=== PATIENT | female | born 1960 | race Caucasian/White ===

== ENCOUNTER 2016-04-23 12:23 | Outpatient (CLI) | payer OTHER | END 2016-04-23 12:24 | disposition home or self-care (01) | DX: Z12.31 Encounter for screening mammogram for malignant neoplasm of breast (principal) ==

== ENCOUNTER 2016-04-30 08:38 | Outpatient (CLI) | payer OTHER | END 2016-04-30 08:39 | disposition home or self-care (01) | DX: N64.4 Mastodynia (principal); N63 Unspecified lump in breast ==

== ENCOUNTER 2017-10-17 09:10 | Outpatient (CLI) | payer BC | END 2017-10-17 09:11 | disposition home or self-care (01) | LOC: SC 09:10 | PROVIDERS: ATTEND Internal Medicine Pulmonary Disease | DX: G47.30 Sleep apnea, unspecified (principal); G47.10 Hypersomnia, unspecified; R06.83 Snoring; E66.9 Obesity, unspecified; Z68.35 Body mass index [BMI] 35.0-35.9, adult | CPT/HCPCS: 99203; 99212 ==

== ENCOUNTER 2017-11-09 10:58 | Outpatient (CLI) | payer BC | END 2017-11-09 10:59 | disposition home or self-care (01) | LOC: SC 10:58 | PROVIDERS: ATTEND Nurse Practitioner Family | DX: G47.33 Obstructive sleep apnea (adult) (pediatric) (principal) | CPT/HCPCS: 99212; 99215 ==

== ENCOUNTER 2018-01-23 12:48 | Outpatient (CLI) | payer BC | END 2018-01-23 12:49 | disposition home or self-care (01) | LOC: SC 12:48 | PROVIDERS: ATTEND Nurse Practitioner Family | DX: G47.33 Obstructive sleep apnea (adult) (pediatric) (principal) | CPT/HCPCS: 99212; 99214 ==

== ENCOUNTER 2018-02-27 09:10 | Outpatient (CLI) | payer BC | END 2018-02-27 09:11 | disposition home or self-care (01) | LOC: SC 09:10 | PROVIDERS: ATTEND Nurse Practitioner Family | DX: G47.33 Obstructive sleep apnea (adult) (pediatric) (principal) | CPT/HCPCS: 99212; 99213 ==

== ENCOUNTER 2018-03-22 10:04 | Outpatient (CLI) | payer BC ==
--- NOTE | 2018-03-22 11:11 | Mammography Report ---
Reason: SCREENING MAMMO Procedure Date: 03/22/2018 Accession Number: [id number] / [id number] Procedure: MARIEL - Screening Mammo w/Jeancarlos CPT Code: FULL RESULT: EXAM: Screening Mammo w/Jeancarlos DATE: 03/22/2018 10:36 AM CLINICAL HISTORY: Screening mammogram TECHNIQUE: Bilateral CC and MLO views were obtained. COMPARISON: 04/30/2016, 01/24/2015 and 12/15/2012 FINDINGS: There are scattered fibroglandular densities. No significant interval change. No suspicious masses, clustered microcalcifications, skin thickening, or regions of architectural distortion are identified. IMPRESSION: Benign findings RECOMMENDATION: Routine annual screening unless otherwise clinically indicated. BIRADS CATEGORY 2: Benign findings STANDARD QUALIFYING STATEMENTS: 1. This examination was not reviewed with the aid of Computer-Aided Detection (CAD). 2. A negative or benign imaging report should not preclude biopsy if clinically suspicious findings are present. 3. Dense breasts may obscure an underlying neoplasm. 4. This examination was reviewed with the aid of 3D breast imaging (tomosynthesis).
== END 2018-03-22 10:05 | disposition home or self-care (01) ==
LOC: DI 10:04
DX: Z12.31 Encounter for screening mammogram for malignant neoplasm of breast (principal)
CPT/HCPCS: 77063; 77067

== ENCOUNTER 2018-10-25 14:40 | Outpatient (CLI) | payer BC ==
[2018-10-25 15:49] VITALS: BP 142/80
--- NOTE | 2018-10-25 15:49 | SLEEP CARE CONSULTATION ---
Information from patient questionnaire entered by Tania Sam. I have reviewed and concur with the information entered by Tania Sam. This document represents the service I personally performed and the decisions made by me, Therese Soares, RN, MSN, COM[employer] WELDER APPRENTICE. History of Present Illness Previous diagnosis: Mild (Culmulative AHI of 2 studies show AHI of 15.3 with3% desat and 12.1 with 4% desat. ), Moderate, Obstructive Sleep Apnea-Hypopnea Syndrome AHI: 15.3 Reason for CPAP/BiPAP follow up: other (9 month) Equipment type: CPAP Equipment obtained from: [employer] Mask style: Nasal Mask brand: Respironics Backup mask available: Yes Last cushion change: 2 weeks ago Prior sleep studies: Yes CPAP Compliance Data - Data Reviewed with Patient Average duration of nightly device use: 6.9 Compliance rate %: 90 (180 days) Current pressure setting (cmH2O): 6-8 Humidity settin Heated hose settin Average residual AHI: 2.8 Average large leak: 1 min 7 secs Subjective Patient concerns: reports: mask discomfort (from over tightening mask to prevent dislodging), nasal congestion (mild in morning intermittently ). denies: aerophagia, air blowing in eyes, mask leak noise, condensation in mask/hose, dry mouth, nose, throat, epistaxis Observed to snore while using device: No Current pressure setting perceived as: comfortable On therapy, patient: reports: sleeping better, awakening more refreshed, being more awake and alert during the day, more rested overall. denies: drowsiness while driving Initial [place] Sleepiness Scale score: 5 Current [place] Sleepiness Scale score: 2 Allergies and Home Medications Known drug allergies: Yes (ibuprofen ) Home medication list reviewed: Yes Allergy and home medication list: Metformin 500mg tid Review of Systems Review of systems same as previous: No (Stopped blood pressure as no longer needed since CPAP) Physical Exam Blood Pressure: 142/80 Cuff size: long Heart Rate: 77 O2 Saturation: 98 Height: 5 ft 5.5 in Weight (kg): 217 lb 9.6 oz Body Mass Index: 35.6 BMI Classification: Class 2 Impression and Plan 1. Obstructive Sleep Apnea-Hypopnea Syndrome, mild to moderate, with good treatment compliance and good apnea control. On CPAP therapy, the patient has better sleep quality and is more rested overall. Since her headgear has been dislodging and if tightens , it is uncomfortable, I will order the new headgear attachment. She is to inform me if she has difficulty getting this new attachment so I can contact mask rep. She is aware of how often to get supplies. When I discussed her BMI and obesity health risks, patient stated she has struggled with weight for lifetime. Her lowest weight of 150 pounds was only achieved if maintained a very strict 800cal diet. She is taking Metformin to assist with weight loss and working with PCP. Current weight is stable. She was informed if she [place] or loses significant weight, her apnea risk will increase or decrease and pressure requirements will change. Thus she was informed of symptoms to report for pressure adjustment. Patient's apnea severity and rationale for treatment to reduce apnea, improve sleep quality and reduce cardiovascular and cerebrovascular events was reviewed. I also reviewed the benefit of consistent device use of CPAP for hypertension. Patient states she no longer requires blood pressure medication to control blood pressure. * Continue CPAP pressure at 6-8 cmH2O * Headgear attachment. * Notify me if snoring with mask or feeling that the pressure is too much or too little * Attempt to lose weight * Return for follow up in 1 year, or sooner if concerns arise I spent 100% of this 30 minute visit face to face with the patient with greater than 50% of this was spent time counseling the patient and coordination of care.
== END 2018-10-25 14:41 | disposition home or self-care (01) ==
LOC: SC 14:40
PROVIDERS: ATTEND Nurse Practitioner Family
DX: G47.33 Obstructive sleep apnea (adult) (pediatric) (principal); E66.9 Obesity, unspecified; Z68.35 Body mass index [BMI] 35.0-35.9, adult
CPT/HCPCS: 99212; 99214

== ENCOUNTER 2019-01-10 07:03 | Day surgery (SDC) | payer BC ==
[2019-01-10] MEDS ORDERED: fentaNYL 250 MCG/5 ML VIAL IVP ONE (07:04)
[2019-01-10] MEDS ORDERED: MIDAZOLAM 2 MG/2 ML VIAL IVP ONE (07:04)
[2019-01-10] MEDS ORDERED: LACTATED RINGERS 1,000 ML IV ONE (07:38)
[2019-01-10 09:22] VITALS: BP 136/85
== END 2019-01-10 07:04 | disposition home or self-care (01) ==
LOC: SDS 07:03
PROVIDERS: ATTEND Surgery
PROC: 06LY0CC Occlusion of Hemorrhoidal Plexus with Extraluminal Device, Open Approach (ICD-10-PCS; 2019-01-10)
PROC: 0DJD8ZZ Inspection of Lower Intestinal Tract, Via Natural or Artificial Opening Endoscopic (ICD-10-PCS; principal; 2019-01-10 08:15)
DX: Z12.11 Encounter for screening for malignant neoplasm of colon (principal); K64.8 Other hemorrhoids; Z80.0 Family history of malignant neoplasm of digestive organs; I10 Essential (primary) hypertension
CPT/HCPCS: 45378; 46221; J3010; J7120

== ENCOUNTER 2020-08-20 12:22 | Outpatient (CLI) | payer BC, OTHER ==
[2020-08-20 15:50] LABS: ALBUMIN 4.3 g/dL (3.2-5.5); ALBUMIN/GLOBULIN RATIO 1.4 (1.0-2.2); ALKALINE PHOSPHATASE 22 IU/L (42-121); ALT ALANINE AMINOTRANSFERASE 17 IU/L (10-60); AST ASPARTATE AMINOTRANSFERASE 17 IU/L (10-42); BILIRUBIN,TOTAL 1.4 mg/dL (0.2-1.0); BUN - BLOOD UREA NITROGEN 15 mg/dL (6-20); CALCIUM 9.2 mg/dL (8.5-10.3); CARBON DIOXIDE - CO2 31 mmol/L (21-32); CHLORIDE 95 mmol/L (101-111); CHOL/HDL RATIO 3.8 (<4.4); CHOLESTEROL 282 mg/dL; CREATININE 0.7 mg/dL (0.4-1.0); GFR - MDRD 86 (>89); GLUCOSE 90 mg/dL (70-100); HDL CHOLESTEROL 75 mg/dL; LDL CHOLESTEROL,CALCULATED 195 mg/dL; LDL/HDL RATIO 2.6 (<4.4); POTASSIUM 3.2 mmol/L (3.5-5.0); SODIUM 135 mmol/L (135-145); TOTAL PROTEIN 7.3 g/dL (6.7-8.2); TRIGLYCERIDES 61 mg/dL; VLDL CHOLESTEROL 12 mg/dL
[2020-08-20 20:15] LABS: ESTIMATED AVERAGE GLUCOSE 120 mg/dL (70-100); HEMOGLOBIN A1c% 5.8 % (4.27-6.07)
== END 2020-08-20 12:23 | disposition home or self-care (01) ==
LOC: LAB.S 12:22
PROVIDERS: ATTEND Nurse Practitioner Family
DX: R73.9 Hyperglycemia, unspecified (principal); E78.5 Hyperlipidemia, unspecified
CPT/HCPCS: 36415; 80053; 80061; 83036; 83721

== ENCOUNTER 2020-08-29 08:37 | Outpatient (CLI) | payer BC, OTHER ==
[2020-08-29 15:11] LABS: ALBUMIN 4.3 g/dL (3.2-5.5); ALBUMIN/GLOBULIN RATIO 1.3 (1.0-2.2); ALKALINE PHOSPHATASE 25 IU/L (42-121); ALT ALANINE AMINOTRANSFERASE 19 IU/L (10-60); AST ASPARTATE AMINOTRANSFERASE 19 IU/L (10-42); BILIRUBIN,TOTAL 1.7 mg/dL (0.2-1.0); BUN - BLOOD UREA NITROGEN 19 mg/dL (6-20); CALCIUM 9.6 mg/dL (8.5-10.3); CARBON DIOXIDE - CO2 29 mmol/L (21-32); CHLORIDE 102 mmol/L (101-111); CHOL/HDL RATIO 3.5 (<4.4); CHOLESTEROL 261 mg/dL; CREATININE 0.8 mg/dL (0.4-1.0); GFR - MDRD 73 (>89); GLUCOSE 118 mg/dL (70-100); HDL CHOLESTEROL 75 mg/dL; LDL CHOLESTEROL,CALCULATED 175 mg/dL; LDL/HDL RATIO 2.3 (<4.4); POTASSIUM 3.5 mmol/L (3.5-5.0); SODIUM 141 mmol/L (135-145); TOTAL PROTEIN 7.5 g/dL (6.7-8.2); TRIGLYCERIDES 53 mg/dL; VLDL CHOLESTEROL 11 mg/dL
== END 2020-08-29 08:38 | disposition home or self-care (01) ==
LOC: LAB.S 08:37
PROVIDERS: ATTEND Nurse Practitioner Family
DX: R53.83 Other fatigue (principal); E78.5 Hyperlipidemia, unspecified
CPT/HCPCS: 36415; 80053; 80061; 83721; 84443

== ENCOUNTER 2020-09-03 07:48 | Outpatient (CLI) | payer OTHER | END 2020-09-03 07:49 | disposition home or self-care (01) | LOC: LAB.S 07:48 | PROVIDERS: ATTEND Nurse Practitioner Family | DX: R73.9 Hyperglycemia, unspecified (principal) | CPT/HCPCS: 36415; 82947 ==

== ENCOUNTER 2020-09-12 08:55 | Outpatient (CLI) | payer OTHER | END 2020-09-12 08:56 | disposition home or self-care (01) | LOC: LAB.S 08:55 | PROVIDERS: ATTEND Nurse Practitioner Family | DX: R73.9 Hyperglycemia, unspecified (principal) | CPT/HCPCS: 36415; 82947 ==

== ENCOUNTER 2020-10-30 13:20 | Outpatient (CLI) | payer BC, OTHER ==
[2020-10-30 14:06] VITALS: BP 141/85
--- NOTE | 2020-10-30 14:06 | SLEEP CARE CONSULTATION ---
Information from patient questionnaire entered by Emely Simons. I have reviewed and concur with the information entered by Emely Simons. This document represents the service I personally performed and the decisions made by , Kalie Pulido ARNP. History of Present Illness Service Date and Time: 10/30/2020 1320 Previous diagnosis: Mild (Culmulative AHI of 2 studies show AHI of 15.3 with3% desat and 12.1 with 4% desat. ), Moderate, Obstructive Sleep Apnea-Hypopnea Syndrome AHI: 15.3 Reason for follow up: annual Equipment type: CPAP Equipment obtained from: [email or web address] (she is buying through [employer] due to high deductable/cost) Mask style: Nasal Mask brand: Respironics Backup mask available: Yes (old mask) Prior sleep studies: Yes Year and Where: 2017 [facility] Type of Sleep Study: Home sleep study HPI additional information: ANKUR JOEL was diagnosed to have mild to moderate, AHI 15.3, obstructive sleep apnea-hypopnea syndrome and returned today for CPAP therapy annual follow- up. Sleep Study - Results Prior sleep studies: Yes CPAP Compliance Data - Data Reviewed with Patient Average duration of nightly device use: 6 hours 28 minutes Compliance rate %: 85 Current pressure setting (cmH2O): 6-8 Humidity settin Heated hose settin Average residual AHI: 2.5 Average large leak: 5 seconds Subjective Missed days of use due to: reports: other (power outages) Patient concerns: reports: other (CPAP recall). denies: aerophagia, mask discomfort, air blowing in eyes, mask leak noise, condensation in mask/hose, nasal congestion, dry mouth, nose, throat, epistaxis Observed to snore while using device: No Current pressure setting perceived as: comfortable On therapy, patient: reports: sleeping better, awakening more refreshed, being more awake and alert during the day, more rested overall. denies: drowsiness while driving Initial [place] Sleepiness Scale score: 5 Current [place] Sleepiness Scale score: 6 Allergies and Home Medications Home medication list reviewed: Yes (HCTZ) Review of Systems Review of systems same as previous: Yes (no changes) Physical Exam Blood Pressure: 141/85 Cuff size: wrist Heart Rate: 73 O2 Saturation: 85 Height: 5 ft 6 in Weight: 230 lb Body Mass Index: 37.1 BMI Classification: Obese Impression and Plan 1. Obstructive Sleep Apnea-Hypopnea Syndrome, mild to moderate, with good treatment compliance and good apnea control. On CPAP therapy, the patient has be tter sleep quality and is more rested overall. Patient has a DreamStation. Patient has already registered their device for the recall. Patient informed that they may use an inline CPAP filter that they can obtain online to reduce chance of any particles being inhaled or ingested. Patient states she did see some black particles in her device and she has stopped using it due to the risks to her health. She would like to obtain a new device because she feels better when she uses her CPAP device. She has a high deductible so will have to pay for the CPAP anyway so she would like a prescription so that she may purchase this on her own. I will make out a prescription for her today and she will take this with her so that she may find the best deal online. Patient states since stopping using her CPAP she has gained 10 pounds in is tired all the time. She wants to get back using her CPAP so that she might lose weight and feel better, less tired. Patient voiced understanding and agreement with plan. Patient's apnea severity and rationale for treatment to reduce apnea, improve sleep quality and reduce cardiovascular and cerebrovascular events was reviewed. I also reviewed the benefit of consistent device use of CPAP for hypertension. * Continue auto CPAP pressure at 6-8 cmH2O * Replacement device for machine on recall * Notify me if snoring with mask or feeling that the pressure is too much or too little * Attempt to lose weight * Call this office if any problems using CPAP * Return for follow up one month after obtaining new device, or sooner if concerns arise Counseling Topics: Spare mask, Weight loss health impact Visit Type: In Office Time Spent with Patient (minutes): 23 Provider Statement: I spent 100% of the Face to Face Visit with the patient with greater than 50% spent counseling the patient and coordination of care.
== END 2020-10-30 13:21 | disposition home or self-care (01) ==
LOC: SC 13:20
PROVIDERS: ATTEND Nurse Practitioner Family
DX: G47.33 Obstructive sleep apnea (adult) (pediatric) (principal); E66.9 Obesity, unspecified; Z68.37 Body mass index [BMI] 37.0-37.9, adult
CPT/HCPCS: 99212; 99213

== ENCOUNTER 2020-11-29 08:00 | Outpatient (CLI) | payer OTHER | END 2020-11-29 23:59 | disposition home or self-care (01) | LOC: LAB.S 08:00 | PROVIDERS: ATTEND Family Medicine | DX: R50.9 Fever, unspecified (principal); Z20.822 Contact with and (suspected) exposure to COVID-19 | CPT/HCPCS: 87070 ==

== ENCOUNTER 2021-01-12 09:00 | Outpatient (CLI) | payer OTHER | END 2021-01-12 23:59 | disposition home or self-care (01) | LOC: LAB.S 09:00 | PROVIDERS: ATTEND Physician Assistant | DX: R05.9 Cough, unspecified (principal); J06.9 Acute upper respiratory infection, unspecified; Z20.822 Contact with and (suspected) exposure to COVID-19 ==

== ENCOUNTER 2022-10-19 14:50 | Outpatient (CLI) | payer BC ==
--- NOTE | 2022-10-19 15:29 | Sleep Patient Instructions ---
Sleep Center Visit Summary - Patient Visit Information Reason for Visit: Annual visit for PAP therapy - Patient Instructions Additional Instructions: You will continue with CPAP therapy with pressure set at 6-8 cmH2O. A supply prescription will be sent to your new DME supplier and they should contact you to order supplies. A prescription for an oral appliance was completed today. Please call to schedule followup once you have the device. We encourage you to continue to try to lose weight. Please follow up with the sleep care office a month after obtaining new oral appliance. - Clinic Information Contact: [facility] [address] [place] [address] [email or web address] T: [phone]
--- NOTE | 2022-10-19 15:35 | SLEEP CARE CONSULTATION ---
Information from patient questionnaire entered by Renee Brady. I have reviewed and concur with the information entered by Renee Brady. This document represents the service I personally performed and the decisions made by me, Kalie Pulido ARNP. History of Present Illness Service Date and Time: 10/19/2022 1450 Previous diagnosis: Mild (Culmulative AHI of 2 studies show AHI of 15.3 with 3% desat and 12.1 with 4% desat. ), Moderate, Obstructive Sleep Apnea-Hypopnea Syndrome AHI: 15.3 Reason for follow up: annual (LAST SEEN 10/2020) Equipment type: CPAP (Dreamstation 2) Equipment obtained from: Other (buying on [employer] due to high deductible) Mask style: Nasal Backup mask available: Yes (old mask) Last cushion change: 1 month Prior sleep studies: Yes Year and Where: 2017 [facility] Type of Sleep Study: Home sleep study HPI additional information: ANKUR JOEL was diagnosed to have mild to moderate, AHI 15.3, obstructive sleep apnea-hypopnea syndrome and returned today for CPAP therapy annual follow- up. Sleep Study - Results Type of Sleep Study: Home sleep study Prior sleep studies: Yes Year and Where: 2017 [facility] CPAP Compliance Data - Data Reviewed with Patient Average duration of nightly device use: 5 hours 55 minutes Compliance rate %: 71.7 (160/180 day used) Current pressure setting (cmH2O): 6-8 Average residual AHI: 2.8 Central apnea: 0.2 Obstructive apnea: 0.5 Hypopnea: 2.4 Average large leak: 5 secs Subjective Missed days of use due to: reports: other (recalled device) Patient concerns: denies: aerophagia, mask discomfort, air blowing in eyes, mask leak noise, condensation in mask/hose, nasal congestion, dry mouth, nose, throat, epistaxis Observed to snore while using device: No Current pressure setting perceived as: too low On therapy, patient: reports: sleeping better, awakening more refreshed, being more awake and alert during the day, more rested overall. denies: drowsiness while driving Initial [place] Sleepiness Scale score: 5 Allergies and Home Medications Known drug allergies: Yes (ibuprofen) Drug allergies reviewed: Yes Home medication list reviewed: Yes (no changes) Allergy and home medication list: Allergies ibuprofen Allergy (Verified 10/15/22 10:45) Itching Review of Systems Review of systems same as previous: No (RIGHT HAND ARTHROPLASTY Jan 2022) Physical Exam Vital signs obtained and entered by: RENEE Mccullough MA Blood Pressure: 148/81 (RIGHT ) Cuff size: wrist Heart Rate: 69 O2 Saturation: 97 Height: 5 ft 6 in Weight: 238 lb Body Mass Index: 38.4 BMI Classification: Obese Impression and Plan 1. Obstructive Sleep Apnea-Hypopnea Syndrome, mild to moderate, with good treatment compliance and good apnea control. On CPAP therapy, the patient has better sleep quality and is more rested overall. She would like to have a DME supplier for her supplies. She has been ordering online because of a high deductible. She has met her deductible and would like to have them cover her supplies. I will have my clinical rehabilitation coordinator inform of DME options. A DWO prescription will then be made. Patient advised to contact this office if further supply problems. Patient's apnea severity and rationale for treatment to reduce apnea, improve sleep quality and reduce cardiovascular and cerebrovascular events was reviewed. I also reviewed the benefit of consistent device use of CPAP for hypertension. Ankur asked about an oral appliance for her sleep apnea. I informed her that this could work for her. She would like to get one made. I explained that she will need to use it exclusively for a month and then followup in the office. If she notes continued improvement of sleep apnea symptoms with the oral appliance, then a followup up sleep study will be ordered to check effectiveness. She voiced understanding and would like to move forward with this as well. A prescription will be completed. 2. Obesity, unspecified. Currently patients BMI is 38.4. Obesity increases the risk of apnea, CPAP pressure requirements and overall health risks especially cardiovascular and diabetes. Thus patient is advised to lose weight. * Continue auto CPAP pressure at 6-8 cmH2O * Transfer DME * Update supplies * Oral Appliance * Notify me if snoring with mask or feeling that the pressure is too much or too little * Attempt to lose weight * Call this office if any problems using CPAP * Return for follow up one month after obtaining oral appliance, or sooner if concerns arise Counseling Topics: Spare mask, Weight loss health impact Prescriptions: Device supplies, Other (Oral appliance) Visit Type: In Office Time Spent with Patient (minutes): 26 Provider Statement: I spent 100% of the Face to Face Visit with the patient with greater than 50% spent counseling the patient and coordination of care.
[2022-10-19 15:57] VITALS: BP 148/81; O2SAT 97
== END 2022-10-19 14:51 | disposition home or self-care (01) ==
LOC: SC 14:50
PROVIDERS: ATTEND Nurse Practitioner Family
DX: G47.33 Obstructive sleep apnea (adult) (pediatric) (principal); E66.9 Obesity, unspecified; Z68.38 Body mass index [BMI] 38.0-38.9, adult
CPT/HCPCS: 99212; 99213

== ENCOUNTER 2022-12-06 13:48 | Outpatient (CLI) | payer BC ==
[2022-12-06 21:04] LABS: CHOL/HDL RATIO 4.3 (<4.4); CHOLESTEROL 272 mg/dL; HDL CHOLESTEROL 63 mg/dL; LDL CHOLESTEROL,CALCULATED 195 mg/dL; LDL/HDL RATIO 3.1 (<4.4); TRIGLYCERIDES 69 mg/dL (48-352); VLDL CHOLESTEROL 14 mg/dL
[2022-12-06 21:21] LABS: THYROID STIMULATING HORMONE 1.43 uIU/mL (0.34-5.60)
[2022-12-06 21:48] LABS: ESTIMATED AVERAGE GLUCOSE 120 mg/dL (70-100); HEMOGLOBIN A1c% 5.8 % (4.27-6.07)
== END 2022-12-06 13:49 | disposition home or self-care (01) ==
LOC: LAB.S 13:48
PROVIDERS: ATTEND Physician Assistant Medical
DX: R73.9 Hyperglycemia, unspecified (principal)
CPT/HCPCS: 36415; 80061; 83036; 83721; 84443

== ENCOUNTER 2022-12-26 10:55 | Outpatient (CLI) | payer BC ==
--- NOTE | 2022-12-26 14:53 | Ultrasound Report ---
PROCEDURE: Pelvic w/Transvaginal INDICATIONS: ADNEXAL TENDERNESS TECHNIQUE: Real-time scanning was performed of the pelvic organs, with image documentation. Additional endovagi nal scanning was necessary due to incomplete visualization of the adnexal and endometrial structures by transabdominal scanning. COMPARISON: Ultrasound January 24, 2015 FINDINGS: Uterus: Uterus is anteverted and normal in size at 8.4 x 3.5 x 5.2 cm. The myometrium is heterogene ous. The endometrium measures 4 mm in combined thickness. Ovaries: The right ovary measures 2.1 x 1.7 x 1.5 cm, with a calculated ovarian volume of 2.8 cc. T he left ovary measures 4.9 x 4.1 x 4.5 cm, with a calculated ovarian volume of 47.3 cc. The ovaries have a normal sonographic appearance. Less than 12 follicles can be seen in each ovary. No adnexal masses are seen. Left complex cyst with internal echogenic debris measuring 4.2 x 3.3 x 4.2 cm. Other: No pathologic free abdominal or pelvic fluid. IMPRESSION: Left ovarian hemorrhagic cyst measuring 4.2 cm Reviewed by: Jon Pedroza MD on 12/26/2022 1:52 PM AKST Approved by: Jon Pedroza MD on 12/26/2022 1:52 PM AKST Station ID: [id number]
== END 2022-12-26 10:56 | disposition home or self-care (01) ==
LOC: DI 10:55
PROVIDERS: ATTEND Physician Assistant Medical
DX: R10.2 Pelvic and perineal pain (principal); N83.202 Unspecified ovarian cyst, left side

== ENCOUNTER 2023-05-02 09:17 | Outpatient (CLI) | payer BC ==
[2023-05-02 14:31] LABS: BASOPHILS % (AUTO) 0.8 %; EOSINOPHILS # (AUTO) 0.1 10^3/uL (0.0-0.7); HCT - HEMATOCRIT 43.8 % (37.0-47.0); HGB - HEMOGLOBIN 13.6 g/dL (12.0-16.0); LYMPHOCYTES # (AUTO) 1.3 10^3/uL (1.5-3.5); LYMPHOCYTES % (AUTO) 33.6 %; MEAN CORPUSCULAR HGB CONC 31.1 g/dL (32.0-36.0); MEAN CORPUSCULAR VOLUME 90.3 fL (81.0-99.0); MEAN PLATELET VOLUME 11.7 fL (7.9-10.8); MONOCYTES # (AUTO) 0.4 10^3/uL (0.0-1.0); MONOCYTES % (AUTO) 9.7 %; NEUTROPHILS # (AUTO) 2.1 10^3/uL (1.5-6.6); NEUTROPHILS % (AUTO) 53.6 %; PLT - PLATELET COUNT 263 10^3/uL (130-450); RED BLOOD COUNT 4.85 10^6/uL (4.20-5.40); RED CELL DISTRIBUTION WIDTH 13.9 % (12.0-15.0); WHITE BLOOD COUNT 3.9 x10^3/uL (4.8-10.8)
[2023-05-02 15:00] LABS: THYROID STIMULATING HORMONE 2.34 uIU/mL (0.34-5.60)
[2023-05-02 15:13] LABS: ALBUMIN 4.4 g/dL (3.2-5.5); ALBUMIN/GLOBULIN RATIO 1.5 (1.0-2.2); ALKALINE PHOSPHATASE 35 IU/L (42-121); ALT ALANINE AMINOTRANSFERASE 24 IU/L (10-60); AST ASPARTATE AMINOTRANSFERASE 18 IU/L (10-42); BILIRUBIN,TOTAL 1.3 mg/dL (0.2-1.0); BUN - BLOOD UREA NITROGEN 17 mg/dL (6-20); CARBON DIOXIDE - CO2 30 mmol/L (21-32); CHLORIDE 103 mmol/L (101-111); CHOLESTEROL 210 mg/dL; CREATININE 0.8 mg/dL (0.6-1.3); GFR - MDRD 73 (>89); GLUCOSE 105 mg/dL (74-104); HDL CHOLESTEROL 70 mg/dL; LDL CHOLESTEROL,CALCULATED 120 mg/dL; LDL/HDL RATIO 1.7 (<4.4); POTASSIUM 3.9 mmol/L (3.5-4.5); SODIUM 139 mmol/L (135-145); TOTAL PROTEIN 7.4 g/dL (6.4-8.9); TRIGLYCERIDES 99 mg/dL (48-352); VLDL CHOLESTEROL 20 mg/dL
[2023-05-02 19:59] LABS: ESTIMATED AVERAGE GLUCOSE 123 mg/dL (70-100); HEMOGLOBIN A1c% 5.9 % (4.27-6.07)
== END 2023-05-02 09:18 | disposition home or self-care (01) ==
LOC: LAB.S 09:17
PROVIDERS: ATTEND Physician Assistant Medical
DX: E78.49 Other hyperlipidemia (principal); R73.9 Hyperglycemia, unspecified; Z13.9 Encounter for screening, unspecified; E88.810 Metabolic syndrome
CPT/HCPCS: 36415; 80053; 80061; 82306; 83036; 83721; 84443; 85025

== ENCOUNTER 2023-09-12 06:55 | Day surgery (SDC) | payer BC ==
[2023-09-12] MEDS: LACTATED RINGERS 1,000 ML IV ONE (07:00)
[2023-09-12 07:27] VITALS: O2SAT 100
[2023-09-12] MEDS ORDERED: LIDOCAINE-PF 2% 10 ML AMP SUBQ ONE (08:12)
--- NOTE | 2023-09-12 08:12 | ANESTHESIA ---
Pre-Anesthesia VS, & Labs - Diagnosis screening - Procedure colonoscopy Vital Signs: Temp Pulse Resp BP Pulse Ox O2 Flow Rate 36.1 C L 56 L 13 130/78 100 09/12/23 07:00 09/12/23 07:00 09/12/23 07:00 09/12/23 07:00 09/12/23 07:00 Height: 5 ft 6 in Weight (kg): 105 kg Body Mass Index: 37.3 BMI Classification: Obese - NPO Other (last prep at 5am) - Is Patient ?: No - Lab Results Current Lab Results: Laboratory Tests 09/12/23 07:21: POC Whole Bld Glucose 112 H Home Medications and Allergies Home Medications: Ambulatory Orders Atorvastatin [Lipitor] 20 mg PO QPM 09/05/23 hydroCHLOROthiazide [Hydrodiuril] 25 mg PO DAILY 09/05/23 metFORMIN [Glucophage] 1,000 mg PO BID 01/09/19 Atorvastatin [Lipitor] 20 mg PO QPM 09/05/23 hydroCHLOROthiazide [Hydrodiuril] 25 mg PO DAILY 09/05/23 Allergies/Adverse Reactions: Allergies Allergy/AdvReac Type Severity Reaction Status Date / Time ibuprofen Allergy throat and Verified 09/05/23 12:20 toungue itching Anes History & Medical History - Anesthetic History Anesthesia Complications: reports: No previous complications - Medical History Cardiovascular: reports: Hypertension, High cholesterol Pulmonary: reports: Sleep apnea, CPAP use Gastrointestinal: reports: None Urinary: reports: None Musculoskeletal: reports: Osteoarthritis Endocrine/Autoimmune: reports: None Skin: reports: None - Surgical History General: reports: Colonoscopy Eyes Ears Nose Throat (EENT): reports: Tonsil/Adenoidectomy Gynecologic: reports: section, Oophrectomy Orthopedic: reports: Other Exam General: Alert, Oriented x3 Dental: WNL Mouth Opening: Greater than 4 Fingerbreadths Neck Mobility: Normal Mallampati classification: I Thyromental Distance: greater than 6 cm Respiratory: Lungs clear Cardiovascular: Regular rate Plan Anesthesia Type: Total IV Consent for Procedure(s) Verified and Reviewed: Yes Code Status: Attempt Resuscitation ASA classification: 2-Mild systemic disease Is this case an emergency?: No
[2023-09-12] MEDS ORDERED: PROPOFOL 500 MG/50 ML 500 MG/50 ML VIAL ONE (08:13)
[2023-09-12 09:25] VITALS: BP 124/71
--- NOTE | 2023-09-12 11:24 | ANESTHESIA POST OP EVALUATION ---
Anesthesia Post Eval - Post Anesthesia Eval Vitals: Last Vital Signs Temp 36.0 C L 09/12/23 08:42 Pulse 67 09/12/23 09:10 Resp 17 09/12/23 09:10 BP 124/71 09/12/23 09:10 Pulse Ox 100 09/12/23 09:10 O2 Flow Rate CV Function Including HR & BP: Stable Pain Control: Satisfactory Nausea & Vomiting: Negative Mental Status: Baseline Respiratory Status: Airway Patent Hydration Status: Satisfactory Anesthesia Complications: None
== END 2023-09-12 06:56 | disposition home or self-care (01) ==
LOC: SDS 06:55
PROVIDERS: ATTEND Surgery
PROC: 0DBN8ZZ Excision of Sigmoid Colon, Via Natural or Artificial Opening Endoscopic (ICD-10-PCS; principal; 2023-09-12 08:15)
DX: Z12.11 Encounter for screening for malignant neoplasm of colon (principal); D12.5 Benign neoplasm of sigmoid colon; K64.1 Second degree hemorrhoids; E66.9 Obesity, unspecified; Z68.37 Body mass index [BMI] 37.0-37.9, adult; E11.9 Type 2 diabetes mellitus without complications; G47.30 Sleep apnea, unspecified; Z80.0 Family history of malignant neoplasm of digestive organs; Z79.84 Long term (current) use of oral hypoglycemic drugs
CPT/HCPCS: 45380; J7120